=== PATIENT | male | born 1960 | race Caucasian/White ===

== ENCOUNTER 2016-10-28 14:30 | Emergency (ER) | payer BC ==
[2016-10-28] MEDS ORDERED: KETOROLAC TROMETHAMINE 60 MG/2 ML SDV IM ONE (15:19)
--- NOTE | 2016-10-28 15:20 | ER Document Report ---
ED Medical Screen (RME) - General Chief Complaint: Flank Pain Stated Complaint: SIDE PAIN Time Seen by Provider: 10/28/16 15:18 Notes: Patient states he has right flank pain. He states this feels like previous kidney stones. He states he has had 14 kidney stones and has had to have operations previously for the kidney stones. He also states he has chronic back pain. He states he often gets Dilaudid for the pain. He also states that the last time he had a stone his urologist gave him liquid narcotics. Patient states he currently does not have any pain medication because he is here visiting. TRAVEL OUTSIDE OF THE [place] IN LAST 30 DAYS: No - Related Data Allergies/Adverse Reactions: No Known Allergies Allergy (Unverified 10/28/16 14:42) Past Medical History Renal/ Medical History: Denies: Hx Peritoneal Dialysis Physical Exam - Vital signs Vitals: Temp Pulse Resp BP Pulse Ox 97.8 F 76 18 188/103 H 98 10/28/16 14:41 10/28/16 14:41 10/28/16 14:41 10/28/16 14:41 10/28/16 14:41 Course - Vital Signs Vital signs: Temp Pulse Resp BP Pulse Ox 97.8 F 76 18 188/103 H 98 10/28/16 14:41 10/28/16 14:41 10/28/16 14:41 10/28/16 14:41 10/28/16 14:41
[2016-10-28 16:10] LABS: ABSOLUTE EOSINOPHILS # (AUTO) 0.6 10^3/uL (0.0-0.6); ABSOLUTE LYMPHOCYTES (AUTO) 1.7 10^3/uL (0.5-4.7); ABSOLUTE MONOCYTES (AUTO) 0.7 10^3/uL (0.1-1.4); ABSOLUTE NEUT (AUTO) 5.1 10^3/uL (1.7-8.2); BASOPHILS % (AUTO) 0.5 % (0-2); EOSINOPHILS % (AUTO) 7.2 % (0-6); HEMATOCRIT 46.8 % (37.9-51.0); HEMOGLOBIN 15.8 g/dL (13.5-17.0); HGB HCT DIFFERENCE 0.6; MEAN CORPUSCULAR HEMOGLOBIN 31.2 pg (27.0-33.4); MEAN CORPUSCULAR HGB CONC 33.7 g/dL (32.0-36.0); MEAN CORPUSCULAR VOLUME 93 fl (80-97); MONOCYTES % (AUTO) 8.7 % (3-13); RED BLOOD COUNT 5.05 10^6/uL (4.35-5.55); RED CELL DISTRIBUTION WIDTH 13.4 % (11.5-14.0); SEGMENTED NEUTROPHILS % (AUTO) 62.6 % (42-78); WHITE BLOOD COUNT 8.2 10^3/uL (4.0-10.5)
[2016-10-28 16:30] LABS: ALANINE AMINOTRANSFERASE 35 U/L (21-72); ALBUMIN 4.7 g/dL (3.5-5.0); ALKALINE PHOSPHATASE 115 U/L (38-126); ANION GAP 12 (5-19); ASPARTATE AMINO TRANSFERASE 28 U/L (17-59); BILIRUBIN,DIRECT 0.4 mg/dL (0.0-0.4); BILIRUBIN,TOTAL 0.4 mg/dL (0.2-1.3); BLOOD UREA NITROGEN 19 mg/dL (7-20); CARBON DIOXIDE 30 mmol/L (22-30); CHLORIDE 100 mmol/L (98-107); CREATININE RESULT 1.08 mg/dL (0.52-1.25); GLUCOSE 99 mg/dL (75-110); POTASSIUM 4.3 mmol/L (3.6-5.0); TOTAL PROTEIN 7.7 g/dL (6.3-8.2)
--- NOTE | 2016-10-28 16:53 | ER Document Report ---
ED GI/ - General Chief Complaint: Flank Pain Stated Complaint: SIDE PAIN Time Seen by Provider: 10/28/16 15:18 Notes: Patient says he is experiencing right flank pain from his 14th kidney stone. It started about 3 or 4 hours ago. It is located in the right flank. He has had previous stones, almost all of which passed on their own, although he has had one (#12) that had to be broken up by laser and removed by cystoscopy. He is nauseated but has not been vomiting. Has not had any fever. Has not noted any blood in his urine. PMH: Gastric sling. GERD. TRAVEL OUTSIDE OF THE [place] IN LAST 30 DAYS: No - Related Data Allergies/Adverse Reactions: No Known Allergies Allergy (Unverified 10/28/16 14:42) Past Medical History - Social History Smoking Status: Never Smoker Frequency of alcohol use: None Drug Abuse: None Family History: Reviewed & Not Pertinent Patient has suicidal ideation: No Patient has homicidal ideation: No Renal/ Medical History: Reports: Hx Kidney Stones - Patient says that he has had 14 kidney stones in his lifetime. GI Medical History: Reports: Hx Gastroesophageal Reflux Disease, Other - Gastric sling? Procedure Past Surgical History: Reports: Other - Gastric sling? Surgery Review of Systems - Review of Systems Notes: REVIEW OF SYSTEMS: CONSTITUTIONAL : Denies fever. EENT: Denies eye, ear, nose or mouth or throat pain or other symptoms. CARDIOVASCULAR: Denies chest pain. RESPIRATORY: Denies cough, chest congestion, or shortness of breath. GASTROINTESTINAL: Nausea, but denies abdominal pain or vomiting, or diarrhea. Has pain in the right flank and back region. GENITOURINARY: Denies difficulty or painful urinating, urinary frequency, blood in urine. MUSCULOSKELETAL: Denies back or neck pain. Denies joint pain or swelling. SKIN: Denies rash or skin lesions. NEUROLOGICAL: Denies LOC or altered mental status. Denies headache. Denies sensory loss or motor deficits. ALL OTHER SYSTEMS REVIEWED AND NEGATIVE. Physical Exam - Vital signs Vitals: Temp Pulse Resp BP Pulse Ox 97.8 F 76 18 188/103 H 98 10/28/16 14:41 10/28/16 14:41 10/28/16 14:41 10/28/16 14:41 10/28/16 14:41 Interpretation: Hypertensive - Notes Notes: PHYSICAL EXAMINATION: GENERAL: Well-appearing, in no acute distress. Appears uncomfortable, but feels better now that he had an injection of Toradol IM in triage. EYES: Pupils equal round and reactive to light, extraocular movements intact. ENT: oropharynx clear without exudates. Moist mucous membranes. NECK: Normal range of motion, supple. LUNGS: Breath sounds clear and equal bilaterally. HEART: Regular rate and rhythm without murmurs. ABDOMEN: Soft, nontender. No guarding or rebound. No bruits heard. BACK: No tenderness throughout entire back. Indicates painful area in the right flank. EXTREMITIES: Normal range of motion without pain. NEUROLOGICAL: Normal speech, normal gait. Normal sensory, motor, and reflex exams. Awake, alert, and oriented x3. Cranial nerves normal. PSYCH: Normal mood, normal affect. SKIN: Warm, dry, no rashes. Course - Re-evaluation Re-evalutation: 10/28/16 20:06 Patient is comfortable at the time of my examination. Patient is very well informed about kidney stones. He realizes that his current stone of 8 mm is an unlikely one to pass, however we will try the usual treatments with Flomax, etc. Patient has a urology group that follows him for his stones. They are located in [facility]. He has had them take care of many stones, including a laser lithotripsy. He assures me he can get into see them on a short notice such as tomorrow. Patient does not have any indications of infection. There are just a few white cells in his urine which is probably not significant. I have ordered a culture of his urine. Patient has been giving him prescriptions for Dilaudid, Zofran, Flomax, and Cipro 10/28/16 20:08 - Vital Signs Vital signs: Temp Pulse Resp BP Pulse Ox 97.8 F 76 20 135/89 H 98 10/28/16 14:41 10/28/16 14:41 10/28/16 18:31 10/28/16 18:31 10/28/16 18:31 - Laboratory Result Diagrams: 10/28/16 15:40 10/28/16 15:40 Laboratory results interpreted by me: 10/28/16 10/28/16 15:40 18:16 Eosinophils % 7.2 H Ur Leukocyte Esterase TRACE H Urine Ascorbic Acid 20 H - Diagnostic Test Radiology reviewed: Image reviewed, Reports reviewed - Patient CT scan shows an 8 mm stone at the proximal right ureter, UPJ. Moderate hydronephrosis. Discharge - Discharge Clinical Impression: Obstruction of right ureteropelvic junction (UPJ) due to stone Condition: Stable Disposition: HOME, SELF-CARE Additional Instructions: KIDNEY STONE: You are passing or have passed a kidney stone. These stones are usually due to increased calcium or uric acid concentrations in your urine. Stones within the kidney itself are not painful. The pain occurs as the stone leaves the kidney to pass down the long tube, called the ureter, leading to the bladder. If the stone is small, it will usually pass by itself. Most patients can pass the stone at home. You will usually receive medications for pain, nausea or vomiting, and sometimes a medication to assist in passing the kidney stone. However, if the pain is very severe or if vomiting prevents you from taking oral pain medications, you may need to return for further treatment. Drink three or four quarts of fluids per day. You will be given pain medication (if needed) and urine strainers. Strain all your urine to see if the stone passes. If your doctor has asked you to bring the stone in for analysis, return with the stone once it has passed. Return if pain or vomiting become severe, if you develop a high fever, if you are unable to pass your urine, or if other unusual symptoms occur. TORADOL INJECTION: You have been given an injection of ketorolac tromethamine (Toradol). This is an excellent, safe drug for pain control. It also has potent antiinflammatory action. You should have significant pain relief within about one hour. Toradol is not addicting and is non-sedating. It does not interfere with driving or work. Call or return if you develop itching, hives, shortness of breath, or rash. ANTINAUSEA MEDICATION: You have been given a medication to suppress nausea and vomiting. This type of medication can be given as a shot, pill, or suppository. It will usually last for many hours. Pills and shots usually last six to eight hours, suppositories last about 12 hours. For the typical illness, only one or two doses of the medication may be necessary. Mild lightheadedness may occur. This type of medicine can cause drowsiness. Do not drive or operate dangerous machinery while under its influence. Do not mix with alcohol. See your doctor at once if you have muscle spasms or tightness, or uncontrollable motions (particularly of the neck, mouth, or jaw). Persistent vomiting or severe lightheadedness should also be evaluated by the physician. ORAL NARCOTIC MEDICATION: You have been given a prescription for pain control. This medication is a narcotic. It's best taken with food, as nausea can result if taken on an empty stomach. Don't operate machinery or drive within six hours of taking this medication. Do not combine this medicine with alcohol, or with any medication which can cause sedation (such as cold tablets or sleeping pills) unless you get permission from the physician. Narcotics tend to cause constipation. If possible, drink plenty of fluids and eat a diet high in fiber and fruits. FLOMAX (tamsulosin): Flomax is a medicine that shrinks the prostate gland. It helps relieve symptoms of benign prostatic hypertrophy, such as frequent urination, weak stream, and inadequate emptying. It has been shown to dilate the ureter (tube leading from the kidney to the bladder) and help in passing kidney stones Flomax usually causes no side effects. You may notice slight tiredness and dizziness for a few days. Some patients develop nasal congestion. Rarely, impotence can occur. If the symptoms are bothersome and don't improve with continued use, call your doctor. Contact your doctor or return if you have fainting spells, severe weakness or dizziness, shortness of breath, or rash. Ciprofloxacin You have been given an antibacterial agent, ciprofloxacin (Cipro). This medicine is not related to the penicillins, sulfas, cephalosporins, or tetracyclines. It is often given to patients who are allergic to these drugs. It has been chosen for you either because other drugs are not appropriate, or because of the nature of your problem. Cipro should not be taken with antacids, as these can decrease its effectiveness. It can be taken without regard to meals. CIPRO SHOULD NOT BE TAKEN BY CHILDREN, NURSING WOMEN, OR WOMEN. Although Cipro is usually well-tolerated, common side effects can include nausea and diarrhea. Contact your doctor if you experience any unusual symptoms while on this medication, such as joint pain or swelling, shortness of breath, wheezing, faintness, or hives. FOLLOW-UP CARE: If you have been referred to a physician for follow-up care, call the physician s office for an appointment as you were instructed or within the next two days. If you experience worsening or a significant change in your symptoms, notify the physician immediately or return to the Emergency Department at any time for re-evaluation. Call your urology office tomorrow morning to inform them of and need to be seen promptly. The stone that you have might pass, but it is very unlikely because of its size. Prescriptions: Hydromorphone HCl [Dilaudid 2 mg Tablet] 2 mg PO Q4HP PRN #30 tablet PRN Reason: Ciprofloxacin HCl [Cipro 500 mg Tablet] 500 mg PO BID #10 tablet Ondansetron [Zofran Odt 4 mg Tablet] 1 - 2 tab PO Q4H PRN #15 tab.rapdis PRN Reason: For Nausea/Vomiting Tamsulosin HCl [Flomax] 0.4 mg PO DAILY #7 cap.er.24h
--- NOTE | 2016-10-28 17:27 | RADIOLOGY REPORT (SQ) ---
EXAM DESCRIPTION: CT LTD RENAL STONE PROTOCOL ON COMPLETED DATE/TIME: 10/28/2016 5:11 pm REASON FOR STUDY: Right flank pain, Hx stones COMPARISON: None. TECHNIQUE: CT scan of the abdomen and pelvis performed without intravenous or oral contrast. Images reviewed with lung, soft tissue, and bone windows. Reconstructed coronal and sagittal MPR images revi ewed. All images stored on PACS. All CT scanners at this facility use dose modulation, iterative reconstruction, and/or weight based d osing when appropriate to reduce radiation dose to as low as reasonably achievable (ALARA). [facility]: Dose Right [facility]: CareDose [facility]: Dose Right [facility]: Teradose 4D [facility]: Smart [employer] RADIATION DOSE: mGy. LIMITATIONS: None. FINDINGS: LOWER CHEST: No significant findings. No nodules or infiltrates. NON-CONTRASTED LIVER, SPLEEN, ADRENALS: Evaluation limited by lack of IV contrast. No identified sign ificant masses. PANCREAS: No masses. No peripancreatic inflammatory changes. GALLBLADDER: No identified stones by CT criteria. No inflammatory changes to suggest cholecystitis. RIGHT KIDNEY AND URETER: No suspicious masses. Assessment limited by lack of IV contrast. 8 mm calc ified stone in the proximal right ureter below the UPJ with mild-moderate hydronephrosis . Additiona l parenchymal calcified stones are present, largest measuring 10 mm. LEFT KIDNEY AND URETER: No suspicious masses. Assessment limited by lack of IV contrast. No signifi cant calcifications. No hydronephrosis or hydroureter. AORTA AND RETROPERITONEUM: No aneurysm. No retroperitoneal masses or adenopathy. BOWEL AND PERITONEAL CAVITY: No obvious masses or inflammatory changes. No free fluid. APPENDIX: Normal. PELVIS, BLADDER, AND ABDOMINAL WALL:No abnormal masses. No free fluid. Bladder normal. BONES: No acute findings. OTHER: No other significant finding. IMPRESSION: 8 mm calcified stone in the proximal right ureter below the UPJ with mild-moderate hydro nephrosis . Additional parenchymal calcified stones are present, largest measuring 10 mm. COMMENT: Quality ID # [id number]: Final reports with documentation of one or more dose reduction techniques (e.g., Automated exposure control, adjustment of the mA and/or kV according to patient size, use of iterative reconstruction technique) TECHNICAL DOCUMENTATION: JOB ID: [id number] [employer] ([employer])- All Rights Reserved
[2016-10-28] MEDS ORDERED: PROMETHAZINE HCL 25 MG TABLET PO ONE (18:08)
[2016-10-28] MEDS ORDERED: HYDROMORPHONE HCL 2 MG TABLET PO ONE (18:08)
[2016-10-28 18:36] VITALS: BP 135/89
[2016-10-28 19:08] LABS: APPEARANCE,URINE CLEAR; BILIRUBIN,URINE NEGATIVE (NEGATIVE); GLUCOSE, URINE NEGATIVE (NEGATIVE); KETONES,URINE NEGATIVE (NEGATIVE); LEUKOCYTE ESTERASE,URINE TRACE (NEGATIVE); NITRITE,URINE NEGATIVE (NEGATIVE); PROTEIN,URINE NEGATIVE (NEGATIVE); URINE SPECIFIC GRAVITY 1.012; UROBILINOGEN,URINE NEGATIVE mg/dL (<2.0)
== END 2016-10-28 18:37 | disposition home or self-care (01) ==
LOC: ER 14:30
DX: N20.1 Calculus of ureter (principal); R10.9 Unspecified abdominal pain; R11.0 Nausea; K21.9 Gastro-esophageal reflux disease without esophagitis; Z87.442 Personal history of urinary calculi
CPT/HCPCS: 99284; 96372; 36415; 87086; 85025; 87088; 80053; 81001; 76380; J1885

== ENCOUNTER 2016-10-30 12:36 | Inpatient (IN) | payer BC ==
[2016-10-30] MEDS ORDERED: CIPROFLOXACIN 400 MG/D5W RTU 400 MG/200 ML RTUPB IV ONE (12:55)
--- NOTE | 2016-10-30 12:57 | ER Document Report ---
ED Medical Screen (RME) - General Chief Complaint: Fever Stated Complaint: FEVER Time Seen by Provider: 10/30/16 12:51 TRAVEL OUTSIDE OF THE [place] IN LAST 30 DAYS: No - HPI Notes: 10/30/16 12:57 Patient seen 48 hours ago with diagnosis of a 8 mm kidney stone at [facility] concerning for infection started on ciprofloxacin patient is having fevers chills Anh's at home now urologist is at [facility] in [place] - Related Data Allergies/Adverse Reactions: No Known Allergies Allergy (Unverified 10/28/16 14:42) Past Medical History - Social History Chew tobacco use (# tins/day): No Frequency of alcohol use: None Drug Abuse: None Renal/ Medical History: Reports: Hx Kidney Stones - Patient says that he has had 14 kidney stones in his lifetime.. Denies: Hx Peritoneal Dialysis GI Medical History: Reports: Hx Gastroesophageal Reflux Disease Surgical Hx: Negative Past Surgical History: Reports: Other - Gastric sling? Surgery Review of Systems - Review of Systems Constitutional: Fever Physical Exam - Vital signs Vitals: Temp Pulse Resp BP Pulse Ox 99.5 F 102 H 20 138/81 H 99 10/30/16 12:46 10/30/16 12:46 10/30/16 12:46 10/30/16 12:46 10/30/16 12:46 - Extremities General upper extremity: Normal inspection General lower extremity: Normal inspection Course - Vital Signs Vital signs: Temp Pulse Resp BP Pulse Ox 99.5 F 102 H 20 138/81 H 99 10/30/16 12:46 10/30/16 12:46 10/30/16 12:46 10/30/16 12:46 10/30/16 12:46
[2016-10-30] MEDS: NORMAL SALINE 1000 ML 1,000 ML IV PRN ×2 (13:12→14:20)
[2016-10-30] MEDS ORDERED: ACETAMINOPHEN 650 MG SUPP.RECT PR ONE (13:13)
--- NOTE | 2016-10-30 13:14 | ER Document Report ---
ED Fever - General Chief Complaint: Fever Stated Complaint: FEVER Time Seen by Provider: 10/30/16 12:51 Notes: Patient is a 56-year-old male who presents emergency department complaining of fever. Patient states that he was seen here on October 28 and told he had an 8 mm stone in his right ureter. He was discharged home on Cipro, Flomax and pain medication and told to follow-up with his urologist. Patient states that as soon as he got home he started developing low-grade fevers. Patient states that the highest they have been was 103.3 which was this morning and he decided to come to the emergency department. Patient admits to fever, chills, rigor, nausea, flank pain. States he has been able to urinate. Past medical history significant for history of kidney stones prior to this occurrence back in May requiring cystoscopy and stent placement. Past surgical history significant for gastric bypass in April 2016. Social history denies any tobacco, alcohol or drug use. Patient is here visiting his girlfriend. Patient states that his primary care facility is [facility] in [facility] about [address] Abraham, follows with Dr. Carvajal out of [facility]. TRAVEL OUTSIDE OF THE [place] IN LAST 30 DAYS: No - Related Data Allergies/Adverse Reactions: No Known Allergies Allergy (Unverified 10/28/16 14:42) Past Medical History - Social History Smoking Status: Never Smoker Chew tobacco use (# tins/day): No Frequency of alcohol use: None Drug Abuse: None Family History: Reviewed & Not Pertinent Patient has suicidal ideation: No Patient has homicidal ideation: No Renal/ Medical History: Reports: Hx Kidney Stones - Patient says that he has had 14 kidney stones in his lifetime.. Denies: Hx Peritoneal Dialysis GI Medical History: Reports: Hx Gastroesophageal Reflux Disease Surgical Hx: Negative Past Surgical History: Reports: Other - Gastric sling? Surgery Review of Systems - Review of Systems Constitutional: See HPI Gastrointestinal: See HPI Genitourinary: See HPI -: Yes All other systems reviewed and negative Physical Exam - Vital signs Vitals: Temp Pulse Resp BP Pulse Ox 99.5 F 102 H 20 138/81 H 99 10/30/16 12:46 10/30/16 12:46 10/30/16 12:46 10/30/16 12:46 10/30/16 12:46 - Notes Notes: PHYSICAL EXAM GENERAL: Alert, interacts well. HEAD: Normocephalic, atraumatic. EYES: Pupils equal, round, and reactive to light. Extraocular movements intact. ENT: Oral mucosa moist, tongue midline. NECK: Full range of motion. Supple. Trachea midline. LUNGS: Clear to auscultation bilaterally, no wheezes, rales, or rhonchi. No respiratory distress. HEART: Regular rate and rhythm. No murmurs, gallops, or rubs. ABDOMEN: Soft, nondistended, nontender. No guarding, rebound, or rigidity.. Bowel sounds present in all 4 quadrants. EXTREMITIES: Moves all 4 extremities spontaneously. No edema, radial and dorsalis pedis pulses 2/4 bilaterally. No cyanosis. BACK: positive CVA tenderness on the right, negative on the left. NO paraspinous tenderness, spinous process tenderness, deformities or step offs NEUROLOGICAL: Alert and oriented x4. Normal speech. PSYCH: Normal affect, normal mood. SKIN: Warm, dry, normal turgor. No rashes or lesions noted. Course - Re-evaluation Re-evalutation: 10/30/16 14:40 Patient is a 56-year-old male who is hemodynamically stable, no acute distress. Repeat temp at the bedside was 100.5. CBC shows a white count of 23.3 with left shift. Renal function is elevated from initial testing done on the . Trace leukoesterase noted on urinalysis. Presentation is concerning for complicated pyelonephritis secondary to stone noted on KUB and imaging done on the . Patient has been accepted by Dr. Delvalle for inpatient care with covering neurologist Dr. Woodruff of this patient. Patient to be kept n.p.o. for over this afternoon/evening for a cystoscopy placement of the right ureter stent patient agrees with plan.. - Vital Signs Vital signs: Temp Pulse Resp BP Pulse Ox 100.5 F H 102 H 16 138/81 H 99 10/30/16 13:17 10/30/16 12:46 10/30/16 13:29 10/30/16 12:46 10/30/16 12:46 - Laboratory Result Diagrams: 10/30/16 13:10 10/30/16 13:10 Laboratory results interpreted by me: 0910/30/16 10/30/16 13:10 13:10 13:10 WBC 23.3 H D Seg Neuts % (Manual) 86 H Lymphocytes % (Manual) 5 L Abs Neuts (Manual) 21.2 H PT 15.5 H BUN 34 H Creatinine 2.35 H Est GFR ( Amer) 35 L Est GFR (Non-Af Amer) 29 L Glucose 113 H Direct Bilirubin 0.5 H - Diagnostic Test Radiology reviewed: Image reviewed, Reports reviewed Discharge - Discharge Clinical Impression: Pyelonephritis, acute, Obstruction of right ureteropelvic junction (UPJ) due to stone Condition: Stable Disposition: ADMITTED INPATIENT Admitting Provider: Hospitalist - [facility] Admitted: [facility]
[2016-10-30 13:35] LABS: HEMATOCRIT 46.4 % (37.9-51.0); HEMOGLOBIN 15.3 g/dL (13.5-17.0); HGB HCT DIFFERENCE -0.5; MEAN CORPUSCULAR HEMOGLOBIN 30.8 pg (27.0-33.4); MEAN CORPUSCULAR VOLUME 94 fl (80-97); RED BLOOD COUNT 4.96 10^6/uL (4.35-5.55); RED CELL DISTRIBUTION WIDTH 13.6 % (11.5-14.0)
[2016-10-30 13:36] LABS: VENOUS BLOOD BASE EXCESS 0.2 mmol/L; VENOUS BLOOD HCO3 26.2 mmol/L (20-32); VENOUS BLOOD PH 7.36 (7.30-7.42)
[2016-10-30 13:39] LABS: PROTHROMBIN TIME 15.5 SEC (11.4-15.4)
[2016-10-30 13:50] LABS: ALANINE AMINOTRANSFERASE 33 U/L (21-72); ALBUMIN 4.1 g/dL (3.5-5.0); ALKALINE PHOSPHATASE 99 U/L (38-126); ANION GAP 12 (5-19); ASPARTATE AMINO TRANSFERASE 26 U/L (17-59); BILIRUBIN,DIRECT 0.5 mg/dL (0.0-0.4); BILIRUBIN,TOTAL 0.7 mg/dL (0.2-1.3); BLOOD UREA NITROGEN 34 mg/dL (7-20); CALCIUM 9.4 mg/dL (8.4-10.2); CARBON DIOXIDE 27 mmol/L (22-30); CHLORIDE 99 mmol/L (98-107); CREATININE RESULT 2.35 mg/dL (0.52-1.25); GLUCOSE 113 mg/dL (75-110); POTASSIUM 4.3 mmol/L (3.6-5.0); SODIUM 138.2 mmol/L (137-145); TOTAL PROTEIN 7.1 g/dL (6.3-8.2)
[2016-10-30] MEDS ORDERED: NORMAL SALINE 1000 ML 1,000 ML IV ONE (13:59)
[2016-10-30 14:01] LABS: WHITE BLOOD COUNT 23.3 10^3/uL (4.0-10.5)
[2016-10-30 14:03] LABS: BAND NEUTROPHILS % (MANUAL) 5 % (3-5); BASOPHILS % (MANUAL) 0 % (0-2); EOSINOPHILS % (MANUAL) 0 % (0-6); LYMPHOCYTES % (MANUAL) 5 % (13-45); TOTAL CELLS COUNTED 100
[2016-10-30 14:05] LABS: TOXIC GRANULATION SLIGHT; TOXIC VACUOLATION PRESENT
[2016-10-30 14:06] LABS: RBC MORPHOLOGY COMMENT NORMO-CYTIC/CHROMIC
--- NOTE | 2016-10-30 14:14 | RADIOLOGY REPORT (SQ) ---
EXAM DESCRIPTION: KUB/ABDOMEN (SINGLE VIEW) COMPLETED DATE/TIME: 10/30/2016 1:46 pm REASON FOR STUDY: eval 8mm stone seen on ct COMPARISON: CT dated 10/28/2016. NUMBER OF VIEWS: One view. TECHNIQUE: AP supine digital radiograph of the abdomen. LIMITATIONS: Limited study due to overlying bowel contents. FINDINGS: CALCIFICATIONS: RIGHT KIDNEY: Probable small calculus in the right kidney, obscured by stool in the overlying colon. RIGHT URETER: No calcifications in the expected location of the ureter. LEFT KIDNEY: None. LEFT URETER: No calcifications in the expected location of the ureter. BLADDER: No suspicious calcifications in the pelvis. BOWEL GAS PATTERN AND SOFT TISSUES: Normal bowel gas pattern. No masses or organomegaly. BONES: No acute fracture. No worrisome bone lesions. OTHER: None. IMPRESSION: PROBABLE CALCULUS IN THE RIGHT KIDNEY, OBSCURED BY STOOL IN THE OVERLYING COLON. TECHNICAL DOCUMENTATION: JOB ID: [id number] [employer]- All Rights Reserved
[2016-10-30] MEDS ORDERED: VANCOMYCIN HCL INJ 1000 MG VIAL IV ONE (14:25)
[2016-10-30] MEDS ORDERED: PIPERACILLIN/TAZOBACTAM 3.375 GM VIAL IV ONE (14:25)
[2016-10-30 14:38] LABS: APPEARANCE,URINE CLEAR; BILIRUBIN,URINE NEGATIVE (NEGATIVE); GLUCOSE, URINE NEGATIVE (NEGATIVE); KETONES,URINE NEGATIVE (NEGATIVE); LEUKOCYTE ESTERASE,URINE TRACE (NEGATIVE); NITRITE,URINE NEGATIVE (NEGATIVE); PROTEIN,URINE 100 mg/dL (NEGATIVE); UROBILINOGEN,URINE NEGATIVE mg/dL (<2.0)
[2016-10-30] MEDS ORDERED: ONDANSETRON HCL INJ/PF 4 MG/2 ML SDV IV ONE (14:45)
[2016-10-30] MEDS ORDERED: LIDOCAINE 2% URO-JET 5 ML KIT ONE (15:05)
[2016-10-30] MEDS ORDERED: ALBUTEROL SULFATE 0.083% NEB 2.5 MG/3 ML AMPUL NEB PRN (15:11)
[2016-10-30] MEDS ORDERED: NORMAL SALINE 1000 ML 1,000 ML IV PRN (15:11)
[2016-10-30] MEDS ORDERED: ACETAMINOPHEN 325 MG TABLET PO PRN (15:11)
[2016-10-30] MEDS ORDERED: ONDANSETRON 4 MG TAB.RAPDIS PO PRN (15:11)
[2016-10-30] MEDS ORDERED: ONDANSETRON HCL INJ/PF 4 MG/2 ML SDV IV PRN (15:11)
[2016-10-30] MEDS ORDERED: HYDROMORPHONE HCL INJ/PF 2 MG/ML AMPULE IV PRN (15:16)
[2016-10-30] MEDS ORDERED: ACETAMINOPHEN 100 ML IV ONE (15:17)
[2016-10-30] MEDS ORDERED: HYDROMORPHONE HCL INJ/PF 2 MG/ML AMPULE ONE (15:17)
[2016-10-30] MEDS ORDERED: MIDAZOLAM 2 MG/2 ML INJ ONE (15:17)
[2016-10-30] MEDS ORDERED: PROPOFOL INJ 200 MG/20 ML VIAL IV ONE (15:17)
[2016-10-30] MEDS ORDERED: VANCOMYCIN HCL 0 MG in DEXTROSE 5%-WATER 250 ML IV NR (15:30)
--- NOTE | 2016-10-30 15:30 | PDOC H&P ---
History of Present Illness Admission Date/PCP: 10/30/16 14:43 Patient complains of: Fevers and chills History of Present Illness: MYAH LOPEZ is a 56 year old male who has a previous history of kidney stones who presents with nausea, vomiting, fevers and chills and rigors. The patient was seen in the emergency room here at [facility] on October 28. He was diagnosed with a kidney stone and was given Dilaudid and Cipro. Patient went home and reports that later that evening he began to have fevers and chills up to as high as 103. Patient presents today with continued symptoms along with worsening pain. The patient is found to have a 14 mm stone is admitted for IV antibiotics and urological intervention. The patient also was noted to have acute renal failure. His creatinine 2 days ago was normal but is is up today. Patient has had decreased p.o. intake. He has had some hematuria. He complains of bilateral flank pain. It has been intermittent in nature. He also does complain of some right lower quadrant abdominal pain. Past Medical History Cardiac Medical History: Reports: None Pulmonary Medical History: Reports: None EENT Medical History: Reports: None Neurological Medical History: Reports: None Endocrine Medical History: Reports: None Renal/ Medical History: Reports: Nephrolithiasis Malignancy Medical History: Reports: None GI Medical History: Reports: Gastroesophageal Reflux Disease Musculoskeltal Medical History: Reports: None Psychiatric Medical History: Reports: None Traumatic Medical History: Reports: None Hematology: Reports: None Infectious Medical History: Reports: None Past Surgical History Past Surgical History: Reports: Other - Gastric sleeve surgery Social History Information Source: Patient Lives with: Spouse/Significant other Smoking Status: Never Smoker Frequency of Alcohol Use: Rare Hx Recreational Drug Use: No Drugs: None - Advance Directive Resuscitation Status: Full Code Family History Family History: Both of his parents lived to their 80s. He reports that he had weight related illnesses. Parental Family History Reviewed: Yes Children Family History Reviewed: No Sibling(s) Family History Reviewed.: No Medication/Allergy Home Medications: Esomeprazole Magnesium [Nexium] 40 mg PO DAILY 10/30/16 Gabapentin [Neurontin 300 mg Capsule] 300 mg PO Q8 10/30/16 Glipizide [Glucotrol 5 mg Tablet] 5 mg PO BID 10/30/16 Lisinopril [Zestril] 20 mg PO DAILY 10/30/16 Pregabalin [Lyrica 100 mg Capsule] 100 mg PO DAILY 10/30/16 Tadalafil [Cialis] 5 mg PO ASDIR PRN 10/30/16 Allergies/Adverse Reactions: No Known Allergies Allergy (Unverified 10/28/16 14:42) Review of Systems Constitutional: PRESENT: chills, fever(s) Eyes: ABSENT: visual disturbances Ears: ABSENT: hearing changes Cardiovascular: ABSENT: chest pain, dyspnea on exertion, edema, orthropnea, palpitations Respiratory: ABSENT: cough, hemoptysis Gastrointestinal: PRESENT: nausea, vomiting Genitourinary: PRESENT: as per HPI, dysuria Musculoskeletal: ABSENT: joint swelling Integumentary: ABSENT: rash, wounds Neurological: ABSENT: abnormal gait, abnormal speech, confusion, dizziness, focal weakness, syncope Psychiatric: ABSENT: anxiety, depression Hematologic/Lymphatic: ABSENT: easy bleeding, easy bruising Physical Exam Vital Signs: Temp Pulse Resp BP Pulse Ox 100.5 F H 102 H 23 H 122/72 94 10/30/16 13:17 10/30/16 12:46 10/30/16 14:24 10/30/16 14:24 10/30/16 14:24 General appearance: PRESENT: no acute distress, well-developed, well-nourished Head exam: PRESENT: atraumatic, normocephalic Eye exam: PRESENT: conjunctiva pink, EOMI, PERRLA. ABSENT: scleral icterus Ear exam: PRESENT: normal external ear exam Mouth exam: PRESENT: moist, tongue midline Neck exam: ABSENT: JVD Respiratory exam: PRESENT: clear to auscultation flynn. ABSENT: rales, rhonchi, wheezes Cardiovascular exam: PRESENT: RRR. ABSENT: diastolic murmur, rubs, systolic murmur Pulses: PRESENT: normal dorsalis pedis pul Vascular exam: PRESENT: normal capillary refill GI/Abdominal exam: PRESENT: normal bowel sounds, soft. ABSENT: distended, guarding, mass, organolmegaly, rebound, tenderness Rectal exam: PRESENT: deferred Extremities exam: ABSENT: calf tenderness, clubbing, pedal edema Neurological exam: PRESENT: alert, awake, oriented to person, oriented to place , oriented to time, oriented to situation, CN II-XII grossly intact. ABSENT: motor sensory deficit Psychiatric exam: PRESENT: appropriate affect Skin exam: PRESENT: dry, intact, warm. ABSENT: cyanosis, rash Results Impressions: KUB X-Ray 10/30/16 12:55 IMPRESSION: PROBABLE CALCULUS IN THE RIGHT KIDNEY, OBSCURED BY STOOL IN THE OVERLYING COLON. Assessment & Plan - Diagnosis (1) Acute renal failure Is this a current diagnosis for this admission?: Yes Plan: Patient has acute renal failure most likely secondary to dehydration. The patient does have a kidney stone however it is unilateral. Patient will get IV fluids and will have stone removal today by urology. (2) Obstruction of right ureteropelvic junction (UPJ) due to stone Is this a current diagnosis for this admission?: Yes Plan: Patient is to be evaluated by urology. Will give Dilaudid as needed along with IV fluids. (3) Pyelonephritis, acute Is this a current diagnosis for this admission?: Yes Plan: Patient has had fever along with the kidney stone. Given his history of having had previous stents we will cover with vancomycin and Zosyn as he has gram positives growing from his urine culture. - Time Time Spent: 50 to 70 Minutes - Inpatient Certification Medical Necessity: Need For IV Fluids, Need for IV Antibiotics
[2016-10-30] MEDS ORDERED: MORPHINE SULFATE 10 MG/ML INJ IV PRN (16:32)
[2016-10-30] MEDS ORDERED: PROMETHAZINE HCL INJ 25 MG/1 ML VIAL IV PRN ×2 (16:32)
[2016-10-30] MEDS ORDERED: FENTANYL CITRATE INJ/PF 100 MCG/2 ML AMPUL IV PRN ×3 (16:32)
[2016-10-30] MEDS ORDERED: DIPHENHYDRAMINE HCL 50 MG/ML VIAL IV PRN (16:32)
[2016-10-30] MEDS ORDERED: OXYCODONE-ACETAMINOPHEN 5-325 MG TABLET PO PRN ×2 (16:32)
[2016-10-30] MEDS ORDERED: MEPERIDINE HCL/PF INJ 25 MG/1 ML DISP.SYRIN IV PRN (16:32)
--- NOTE | 2016-10-30 16:48 | Operative Report ---
Operative Report DATE OF SURGERY: 10/30/16 PREOPERATIVE DIAGNOSIS: Ureteral obstruction, UPJ stone, pyelonephritis POSTOPERATIVE DIAGNOSIS: same OPERATION: 1. Cystoscopy. 2. Placement of right ureteral stent. 3. Culture of urine from right renal pelvis SURGEON: MITCH BOX II ANESTHESIA: GA INTRAOPERATIVE FINDINGS: right ureteral obstruction
[2016-10-30] MEDS ORDERED: PHENYLEPHRINE HCL INJ/PF 10 MG/1 ML SDV ONE (16:53)
[2016-10-30] MEDS ORDERED: ONDANSETRON HCL INJ/PF 4 MG/2 ML SDV ONE (16:53)
[2016-10-30] MEDS ORDERED: DEXAMETHASONE SOD PHOSPHATE INJ 4 MG/1 ML VIAL ONE (16:53)
[2016-10-30] MEDS ORDERED: SUCCINYLCHOLINE CHLORIDE INJ 200 MG/10 ML VIAL ONE (16:53)
--- NOTE | 2016-10-30 17:11 | RADIOLOGY REPORT (SQ) ---
EXAM DESCRIPTION: PYELOGRAM RETROGRADE COMPLETED DATE/TIME: 10/30/2016 4:44 pm REASON FOR STUDY: STENT PLACEMENT COMPARISON: None. FLUOROSCOPY TIME: 0.54 minutes. TECHNIQUE: Intra-operative images acquired during surgical procedure to evaluate progress. NUMBER OF IMAGES: 1 image. LIMITATIONS: None. FINDINGS: Single fluoroscopic image demonstrates partial visualization of the right side of the abdo men with re- demonstration of right renal calculus. No additional acute or significant findings. IMPRESSION: IMAGE(S) OBTAINED DURING PROCEDURE. COMMENT: Quality ID [id number]: Final reports for procedures using fluoroscopy that document radiation exp osure indices, or exposure time and number of fluorographic images (if radiation exposure indices are not available) Please consult full operative report of the attending physician for description of the procedure. TECHNICAL DOCUMENTATION: JOB ID: [id number] [employer]- All Rights Reserved
[2016-10-30] MEDS ORDERED: PIPERACILLIN SODIUM/TAZOBACTAM 3.375 GM in NORMAL SALINE 100 ML IV SCH (18:00)
--- NOTE | 2016-10-30 22:07 | EKG REPORT ---
SEVERITY:- OTHERWISE NORMAL ECG - SINUS TACHYCARDIA : Confirmed by: Cely Keen 30-Oct-2016 22:06:45
[2016-10-30] MEDS: PIPERACILLIN SODIUM/TAZOBACTAM 2.25 GM in NORMAL SALINE 50 ML IV SCH (23:36)
[2016-10-31 05:12] LABS: ABSOLUTE MONOCYTES (AUTO) 1.4 10^3/uL (0.1-1.4); ABSOLUTE NEUT (AUTO) 14.7 10^3/uL (1.7-8.2); BASOPHILS % (AUTO) 0.2 % (0-2); EOSINOPHILS % (AUTO) 0.2 % (0-6); HEMOGLOBIN 13.3 g/dL (13.5-17.0); HGB HCT DIFFERENCE 0.9; LYMPHOCYTES % (AUTO) 5.8 % (13-45); MEAN CORPUSCULAR HEMOGLOBIN 31.8 pg (27.0-33.4); MEAN CORPUSCULAR VOLUME 93 fl (80-97); MONOCYTES % (AUTO) 8.4 % (3-13); RED BLOOD COUNT 4.18 10^6/uL (4.35-5.55); RED CELL DISTRIBUTION WIDTH 13.8 % (11.5-14.0); SEGMENTED NEUTROPHILS % (AUTO) 85.4 % (42-78); WHITE BLOOD COUNT 17.3 10^3/uL (4.0-10.5)
[2016-10-31 05:27] LABS: ANION GAP 9 (5-19); BLOOD UREA NITROGEN 37 mg/dL (7-20); CALCIUM 8.8 mg/dL (8.4-10.2); CARBON DIOXIDE 23 mmol/L (22-30); CHLORIDE 108 mmol/L (98-107); CREATININE RESULT 2.14 mg/dL (0.52-1.25); GLUCOSE 128 mg/dL (75-110); SODIUM 140.2 mmol/L (137-145)
[2016-10-31 05:36] LABS: POTASSIUM 5.2 mmol/L (3.6-5.0)
[2016-10-31] MEDS: PIPERACILLIN SODIUM/TAZOBACTAM 2.25 GM in NORMAL SALINE 50 ML IV SCH ×3 (05:54→18:15)
--- NOTE | 2016-10-31 09:45 | PDOC PROGRESS REPORT ---
Subjective Progress Note for:: 10/31/16 Subjective:: Denies any complaints. Physical Exam Vital Signs: Temp Pulse Resp BP Pulse Ox 97.8 F 61 18 114/72 99 10/31/16 07:24 10/31/16 07:24 10/31/16 07:24 10/31/16 07:24 10/31/16 07:24 Intake & Output 10/30/16 10/31/16 11/01/16 06:59 06:59 06:59 Intake Total 4550 Output Total 550 Balance 4000 Weight 219.2 kg 99.8 kg General appearance: PRESENT: no acute distress Eye exam: PRESENT: conjunctiva pink. ABSENT: scleral icterus Mouth exam: PRESENT: moist, tongue midline Neck exam: ABSENT: JVD Respiratory exam: PRESENT: clear to auscultation flynn. ABSENT: rales, rhonchi, wheezes Cardiovascular exam: PRESENT: RRR. ABSENT: diastolic murmur, rubs, systolic murmur GI/Abdominal exam: PRESENT: normal bowel sounds, soft. ABSENT: distended, guarding, mass, organolmegaly, rebound, tenderness Extremities exam: ABSENT: calf tenderness, clubbing, pedal edema Neurological exam: PRESENT: alert, awake, oriented to person, oriented to place , oriented to time, oriented to situation, CN II-XII grossly intact. ABSENT: motor sensory deficit Psychiatric exam: PRESENT: appropriate affect Skin exam: PRESENT: dry, intact, warm. ABSENT: cyanosis, rash Results Laboratory Results: 10/31/16 04:05 10/31/16 04:05 10/31/16 10/31/16 04:05 04:05 WBC 17.3 H RBC 4.18 L Hgb 13.3 L Hct 39.0 MCV 93 MCH 31.8 MCHC 34.0 RDW 13.8 Plt Count 136 L Seg Neutrophils % 85.4 H Lymphocytes % 5.8 L Monocytes % 8.4 Eosinophils % 0.2 Basophils % 0.2 Absolute Neutrophils 14.7 H Absolute Lymphocytes 1.0 Absolute Monocytes 1.4 Absolute Eosinophils 0.0 Absolute Basophils 0.0 Sodium 140.2 Potassium 5.2 H Chloride 108 H Carbon Dioxide 23 Anion Gap 9 BUN 37 H Creatinine 2.14 H Est GFR ( Amer) 39 L Est GFR (Non-Af Amer) 32 L Glucose 128 H Calcium 8.8 Impressions: Retrograde Pyelogram 10/30/16 00:00 IMPRESSION: IMAGE(S) OBTAINED DURING PROCEDURE. KUB X-Ray 10/30/16 12:55 IMPRESSION: PROBABLE CALCULUS IN THE RIGHT KIDNEY, OBSCURED BY STOOL IN THE OVERLYING COLON. Assessment & Plan - Diagnosis (1) Acute renal failure Is this a current diagnosis for this admission?: Yes Plan: Patient has acute renal failure most likely secondary to dehydration. The patient's creatinine has improved. Will continue with the IV fluids. (2) Obstruction of right ureteropelvic junction (UPJ) due to stone Is this a current diagnosis for this admission?: Yes Plan: Patient had stent placement yesterday it was stone removal by urology. Their input is appreciated. (3) Pyelonephritis, acute Is this a current diagnosis for this admission?: Yes Plan: He has not had any fever since last night. Urine culture from his ER visit prior is growing out gram-positive cocci. We are waiting on the ID of this. We will continue with the vancomycin and Zosyn until the ID of this bacteria is known. (4) Hyperkalemia Is this a current diagnosis for this admission?: Yes Plan: We will continue with IV fluids and monitor. - Time Time Spent with patient: 25-34 minutes - Inpatient Certification Medical Necessity: Need Close Monitoring Due to Risk of Patient Decompensation, Need For IV Fluids, Need for IV Antibiotics
[2016-10-31] MEDS ORDERED: VANCOMYCIN HCL 1,500 MG in DEXTROSE 5%-WATER 250 ML IV SCH (10:00)
--- NOTE | 2016-10-31 12:14 | Operative Report ---
Operative Report DATE OF SURGERY: 10/30/16 PREOPERATIVE DIAGNOSIS: Ureteral obstruction, UPJ stone, pyelonephritis POSTOPERATIVE DIAGNOSIS: same OPERATION: 1. Cystoscopy. 2. Placement of right ureteral stent. 3. Culture of urine from right renal pelvis SURGEON: MITCH BOX II ANESTHESIA: GA INTRAOPERATIVE FINDINGS: right ureteral obstruction PROCEDURE: Date of note 10/30/2016 Preoperative diagnosis: Obstruction of the right kidney, ureteropelvic junction stone, probable sepsis from urinary tract infection Postoperative diagnosis: Same Procedure: Cystoscopy, placement of right ureteral stent, collection of urine from right kidney Surgeon: Kacy Anesthesia: General The patient was taken to the cystoscopy suite and placed into the supine position on the cystoscopy table. After adequate general anesthesia he was prepped and draped in the usual sterile fashion in the lithotomy position. Cystoscopy was carried out with the 22 Turkish panendoscope. The right ureteral orifice was visualized. The orifice was cannulated with a 5 Turkish open-ended ureteral catheter which was advanced under fluoroscopic guidance. The ureteral catheter was advanced into the renal pelvis. A hydronephrotic drip was obtained and a portion of this drainage was collected and sent for urine culture. Utilizing the exchange technique and a 0.035 Glidewire, a 4.8 Turkish 26 cm double-pigtail stent was placed and positioned under fluoroscopic guidance. The bladder was drained and the cystoscope was removed. The patient was returned to the PACU in satisfactory condition.
--- NOTE | 2016-10-31 12:18 | PDOC PROGRESS REPORT ---
Physical Exam Vital Signs: Temp Pulse Resp BP Pulse Ox 98.1 F 72 18 113/68 100 10/31/16 10:53 10/31/16 10:53 10/31/16 10:53 10/31/16 10:53 10/31/16 10:53 Results Laboratory Results: White count today 17,000, down from 20,000 yesterday. Impressions: Retrograde Pyelogram 10/30/16 00:00 IMPRESSION: IMAGE(S) OBTAINED DURING PROCEDURE. KUB X-Ray 10/30/16 12:55 IMPRESSION: PROBABLE CALCULUS IN THE RIGHT KIDNEY, OBSCURED BY STOOL IN THE OVERLYING COLON. Assessment & Plan - Diagnosis (1) Obstruction of right ureteropelvic junction (UPJ) due to stone Is this a current diagnosis for this admission?: Yes - Plan Summary Plan Summary: The patient feels somewhat better than when he presented to the emergency room yesterday. He is having a little bit of reflux up the stent when he urinates causing some mild flank discomfort. This is expected with a ureteral stent present. Other than that he is feeling fine and is being Until he improves somewhat with his white count [place] I encouraged him to drink more fluids and to contact his urologist when he got back home to schedule treatment in the future. He would need some time for the inflammatory process to improve and the infection to be treated adequately prior to any urologic procedure to treat his stone.
[2016-10-31] MEDS ORDERED: GABAPENTIN 300 MG CAPSULE PO SCH (14:00)
[2016-11-01] MEDS: PIPERACILLIN SODIUM/TAZOBACTAM 2.25 GM in NORMAL SALINE 50 ML IV SCH ×4 (00:45→17:24)
[2016-11-01 04:42] LABS: ABSOLUTE EOSINOPHILS # (AUTO) 0.4 10^3/uL (0.0-0.6); ABSOLUTE LYMPHOCYTES (AUTO) 1.9 10^3/uL (0.5-4.7); ABSOLUTE MONOCYTES (AUTO) 1.6 10^3/uL (0.1-1.4); ABSOLUTE NEUT (AUTO) 9.1 10^3/uL (1.7-8.2); BASOPHILS % (AUTO) 0.3 % (0-2); EOSINOPHILS % (AUTO) 2.9 % (0-6); HEMATOCRIT 36.3 % (37.9-51.0); HEMOGLOBIN 12.5 g/dL (13.5-17.0); HGB HCT DIFFERENCE 1.2; LYMPHOCYTES % (AUTO) 14.5 % (13-45); MEAN CORPUSCULAR HEMOGLOBIN 31.4 pg (27.0-33.4); MEAN CORPUSCULAR HGB CONC 34.3 g/dL (32.0-36.0); MEAN CORPUSCULAR VOLUME 92 fl (80-97); MONOCYTES % (AUTO) 12.1 % (3-13); RED BLOOD COUNT 3.97 10^6/uL (4.35-5.55); SEGMENTED NEUTROPHILS % (AUTO) 70.2 % (42-78); WHITE BLOOD COUNT 12.9 10^3/uL (4.0-10.5)
[2016-11-01 04:53] LABS: ANION GAP 8 (5-19); BLOOD UREA NITROGEN 27 mg/dL (7-20); CALCIUM 8.5 mg/dL (8.4-10.2); CARBON DIOXIDE 23 mmol/L (22-30); CHLORIDE 110 mmol/L (98-107); CREATININE RESULT 1.52 mg/dL (0.52-1.25); GLUCOSE 99 mg/dL (75-110); POTASSIUM 4.4 mmol/L (3.6-5.0); SODIUM 140.9 mmol/L (137-145)
[2016-11-01] MEDS ORDERED: OXYCODONE HCL IR 5 MG TABLET PO PRN (07:48)
[2016-11-01] MEDS ORDERED: LISINOPRIL 10 MG TABLET PO SCH (10:00)
[2016-11-01] MEDS ORDERED: (PENDING PHARMACY ID) (Lisinopril [Zestril] 20 MG) PO SCH (10:00)
[2016-11-01] MEDS: LANSOPRAZOLE 30 MG TAB.RAP.DR PO SCH (10:26)
[2016-11-01] MEDS: VANCOMYCIN HCL 1,000 MG in DEXTROSE 5%-WATER 250 ML IV SCH ×2 (10:26→21:14)
--- NOTE | 2016-11-01 11:12 | PDOC PROGRESS REPORT ---
Subjective Progress Note for:: 11/01/16 Subjective:: Denies any complaints. Physical Exam Vital Signs: Temp Pulse Resp BP Pulse Ox 98.4 F 113 H 22 H 126/87 H 98 11/01/16 07:55 11/01/16 09:03 11/01/16 09:03 11/01/16 07:55 11/01/16 09:03 Intake & Output 10/31/16 11/01/16 11/02/16 06:59 06:59 06:59 Intake Total 5807 Output Total 3725 Balance 2082 General appearance: PRESENT: no acute distress Eye exam: PRESENT: conjunctiva pink. ABSENT: scleral icterus Neck exam: ABSENT: JVD Respiratory exam: PRESENT: clear to auscultation flynn. ABSENT: rales, rhonchi, wheezes Cardiovascular exam: PRESENT: RRR. ABSENT: diastolic murmur, rubs, systolic murmur GI/Abdominal exam: PRESENT: normal bowel sounds, soft. ABSENT: distended, guarding, mass, organolmegaly, rebound, tenderness Extremities exam: ABSENT: calf tenderness, clubbing, pedal edema Neurological exam: PRESENT: alert, awake, oriented to person, oriented to place , oriented to time, oriented to situation, CN II-XII grossly intact. ABSENT: motor sensory deficit Psychiatric exam: PRESENT: appropriate affect Skin exam: PRESENT: dry, intact, warm. ABSENT: cyanosis, rash Results Laboratory Results: 11/01/16 04:03 11/01/16 04:03 11/01/16 11/01/16 04:03 04:03 WBC 12.9 H RBC 3.97 L Hgb 12.5 L Hct 36.3 L MCV 92 MCH 31.4 MCHC 34.3 RDW 14.0 Plt Count 148 L Seg Neutrophils % 70.2 Lymphocytes % 14.5 Monocytes % 12.1 Eosinophils % 2.9 Basophils % 0.3 Absolute Neutrophils 9.1 H Absolute Lymphocytes 1.9 Absolute Monocytes 1.6 H Absolute Eosinophils 0.4 Absolute Basophils 0.0 Sodium 140.9 Potassium 4.4 Chloride 110 H Carbon Dioxide 23 Anion Gap 8 BUN 27 H Creatinine 1.52 H Est GFR ( Amer) 58 L Est GFR (Non-Af Amer) 48 L Glucose 99 Calcium 8.5 Impressions: Retrograde Pyelogram 10/30/16 00:00 IMPRESSION: IMAGE(S) OBTAINED DURING PROCEDURE. KUB X-Ray 10/30/16 12:55 IMPRESSION: PROBABLE CALCULUS IN THE RIGHT KIDNEY, OBSCURED BY STOOL IN THE OVERLYING COLON. Assessment & Plan - Diagnosis (1) Acute renal failure Is this a current diagnosis for this admission?: Yes Plan: Patient has acute renal failure most likely secondary to dehydration. The patient's creatinine continues to improve. Will continue with the IV fluids. (2) Obstruction of right ureteropelvic junction (UPJ) due to stone Is this a current diagnosis for this admission?: Yes Plan: Patient had stent placement by urology. Their input is appreciated. (3) Pyelonephritis, acute Is this a current diagnosis for this admission?: Yes Plan: Patient has been afebrile. Urine culture from his ER visit prior is growing out gram-positive cocci. We are waiting on the ID of this. We will continue with the vancomycin and Zosyn until the ID of this bacteria is known. (4) Hyperkalemia Is this a current diagnosis for this admission?: Yes Plan: We will continue with IV fluids and monitor. - Time Time Spent with patient: 25-34 minutes - Inpatient Certification Medical Necessity: Need For IV Fluids, Need for IV Antibiotics
[2016-11-02] MEDS: PIPERACILLIN SODIUM/TAZOBACTAM 2.25 GM in NORMAL SALINE 50 ML IV SCH ×2 (00:13→05:38)
[2016-11-02 05:04] LABS: ABSOLUTE BASOPHILS # (AUTO) 0.1 10^3/uL (0.0-0.2); ABSOLUTE EOSINOPHILS # (AUTO) 0.6 10^3/uL (0.0-0.6); ABSOLUTE LYMPHOCYTES (AUTO) 1.6 10^3/uL (0.5-4.7); ABSOLUTE MONOCYTES (AUTO) 1.2 10^3/uL (0.1-1.4); BASOPHILS % (AUTO) 0.7 % (0-2); EOSINOPHILS % (AUTO) 6.5 % (0-6); HEMATOCRIT 36.8 % (37.9-51.0); HEMOGLOBIN 12.4 g/dL (13.5-17.0); HGB HCT DIFFERENCE 0.4; LYMPHOCYTES % (AUTO) 17.2 % (13-45); MEAN CORPUSCULAR HEMOGLOBIN 31.5 pg (27.0-33.4); MEAN CORPUSCULAR HGB CONC 33.8 g/dL (32.0-36.0); MEAN CORPUSCULAR VOLUME 93 fl (80-97); MONOCYTES % (AUTO) 12.4 % (3-13); RED BLOOD COUNT 3.95 10^6/uL (4.35-5.55); RED CELL DISTRIBUTION WIDTH 14.4 % (11.5-14.0); SEGMENTED NEUTROPHILS % (AUTO) 63.2 % (42-78); WHITE BLOOD COUNT 9.5 10^3/uL (4.0-10.5)
[2016-11-02 05:20] LABS: ANION GAP 7 (5-19); BLOOD UREA NITROGEN 25 mg/dL (7-20); CALCIUM 8.9 mg/dL (8.4-10.2); CARBON DIOXIDE 23 mmol/L (22-30); CHLORIDE 112 mmol/L (98-107); CREATININE RESULT 1.24 mg/dL (0.52-1.25); GLUCOSE 106 mg/dL (75-110); POTASSIUM 3.9 mmol/L (3.6-5.0); SODIUM 142.4 mmol/L (137-145)
[2016-11-02] MEDS: LANSOPRAZOLE 30 MG TAB.RAP.DR PO SCH (09:23)
[2016-11-02] MEDS: VANCOMYCIN HCL 1,000 MG in DEXTROSE 5%-WATER 250 ML IV SCH (09:23)
[2016-11-02 10:54] VITALS: BP 144/85
--- NOTE | 2016-11-02 11:23 | PDOC DISCHARGE SUMMARY ---
General - Admit/Disc Date/PCP Admission Date/Primary Care Provider: 10/31/16 08:37 Discharge Date: 11/02/16 - Discharge Diagnosis (1) Acute renal failure Is this a current diagnosis for this admission?: Yes Summary: Resolved. (2) Obstruction of right ureteropelvic junction (UPJ) due to stone Is this a current diagnosis for this admission?: Yes Summary: Patient had a right ureteral stent placed by Dr. Woodruff of urology. (3) Pyelonephritis, acute Is this a current diagnosis for this admission?: Yes Summary: Growing gram-positive cocci from blood and urine cultures. He will be sent home on Bactrim DS twice daily. We are waiting on the ID. Clinically he has improved. (4) Hyperkalemia Is this a current diagnosis for this admission?: Yes Summary: Resolved. - Additional Information Resuscitation Status: Full Code Discharge Diet: Regular Discharge Activity: Activity As Tolerated Home Medications: Esomeprazole Magnesium [Nexium] 40 mg PO DAILY 10/30/16 Pregabalin [Lyrica 100 mg Capsule] 100 mg PO DAILY 10/30/16 Tadalafil [Cialis] 5 mg PO ASDIR PRN 10/30/16 Oxycodone HCl [Oxy-Ir 5 mg Tablet] 5 mg PO Q6HP PRN #10 tablet 11/02/16 Sulfamethoxazole/Trimethoprim [Bactrim Ds Tablet] 1 each PO BID #30 tablet 11/02 History of Present Illness History of Present Illness: MYAH LOPEZ is a 56 year old male who has a previous history of kidney stones who presents with nausea, vomiting, fevers and chills and rigors. The patient was seen in the emergency room here at [facility] on October 28. He was diagnosed with a kidney stone and was given Dilaudid and Cipro. Patient went home and reports that later that evening he began to have fevers and chills up to as high as 103. Patient presents today with continued symptoms along with worsening pain. The patient is found to have a 14 mm stone is admitted for IV antibiotics and urological intervention. The patient also was noted to have acute renal failure. His creatinine 2 days ago was normal but is is up today. Patient has had decreased p.o. intake. He has had some hematuria. He complains of bilateral flank pain. It has been intermittent in nature. He also does complain of some right lower quadrant abdominal pain. Hospital Course Hospital Course: 56-year-old gentleman who presented with nausea, vomiting, nephrolithiasis and acute renal failure. Patient was treated with IV fluids and IV narcotics. Patient was evaluated by urology placed a right ureteral stent. Patient had a 10 mm stone. The patient's creatinine has returned to normal. He has tolerating his pain with just oral oxycodone. He does have positive cultures growing out gram-positive cocci. He has been on Zosyn however we will switch to Bactrim and treat him as an outpatient. He is established with a urology group in [facility]. He will follow-up with them next week. Physical Exam Vital Signs: Temp Pulse Resp BP Pulse Ox 98.8 F 59 L 18 144/85 H 96 11/02/16 11:10 11/02/16 11:10 11/02/16 11:10 11/02/16 08:42 11/02/16 11:10 Intake & Output 11/01/16 11/02/16 11/03/16 06:59 06:59 06:59 Intake Total 5807 6852 Output Total 3725 2325 Balance 2082 4527 Weight 99.5 kg General appearance: PRESENT: no acute distress Eye exam: PRESENT: conjunctiva pink. ABSENT: scleral icterus Mouth exam: PRESENT: moist, tongue midline Neck exam: ABSENT: JVD Respiratory exam: PRESENT: clear to auscultation flynn. ABSENT: rales, rhonchi, wheezes Cardiovascular exam: PRESENT: RRR. ABSENT: diastolic murmur, rubs, systolic murmur GI/Abdominal exam: PRESENT: normal bowel sounds, soft. ABSENT: distended, guarding, mass, organolmegaly, rebound, tenderness Extremities exam: ABSENT: calf tenderness, clubbing, pedal edema Neurological exam: PRESENT: alert, awake, oriented to person, oriented to place , oriented to time, oriented to situation, CN II-XII grossly intact. ABSENT: motor sensory deficit Psychiatric exam: PRESENT: appropriate affect Skin exam: PRESENT: dry, intact, warm. ABSENT: cyanosis, rash Results Laboratory Results: 11/02/16 03:56 11/02/16 03:56 11/02/16 11/02/16 03:56 03:56 WBC 9.5 RBC 3.95 L Hgb 12.4 L Hct 36.8 L MCV 93 MCH 31.5 MCHC 33.8 RDW 14.4 H Plt Count 153 Seg Neutrophils % 63.2 Lymphocytes % 17.2 Monocytes % 12.4 Eosinophils % 6.5 H Basophils % 0.7 Absolute Neutrophils 6.0 Absolute Lymphocytes 1.6 Absolute Monocytes 1.2 Absolute Eosinophils 0.6 Absolute Basophils 0.1 Sodium 142.4 Potassium 3.9 Chloride 112 H Carbon Dioxide 23 Anion Gap 7 BUN 25 H Creatinine 1.24 Est GFR ( Amer) > 60 Est GFR (Non-Af Amer) > 60 Glucose 106 Calcium 8.9 Impressions: Retrograde Pyelogram 10/30/16 00:00 IMPRESSION: IMAGE(S) OBTAINED DURING PROCEDURE. KUB X-Ray 10/30/16 12:55 IMPRESSION: PROBABLE CALCULUS IN THE RIGHT KIDNEY, OBSCURED BY STOOL IN THE OVERLYING COLON. Qualifiers PATEINT BEING DISCHARGED WITH ANY OF THE FOLLOWING DIAGNOSIS?: No Plan Discharge Plan: Patient is discharged home. He will follow-up with his urologist in 1 week. Time Spent: Greater than 30 Minutes
== END 2016-11-02 12:00 | disposition home or self-care (01) | DRG 683 ==
LOC: ER 12:36 → EH 14:43 → EDLOC 14:43 → UNDOADMIN 14:43 → EH 15:12 → 3W 17:49 → EH 17:49 → 3W 10-31 08:37
PROVIDERS: ADMIT Internal Medicine; ATTEND Internal Medicine
PROC: BT1DZZZ Fluoroscopy of Right Kidney, Ureter and Bladder (ICD-10-PCS; 2016-10-30)
PROC: 0T768DZ Dilation of Right Ureter with Intraluminal Device, Via Natural or Artificial Opening Endoscopic (ICD-10-PCS; principal; 2016-10-30 15:30)
DX: N17.9 Acute kidney failure, unspecified (principal); N20.1 Calculus of ureter; N10 Acute pyelonephritis; K21.9 Gastro-esophageal reflux disease without esophagitis; R31.9 Hematuria, unspecified; E86.0 Dehydration; E87.5 Hyperkalemia; Z98.84 Bariatric surgery status
CPT/HCPCS: 36415; 74000; 74420; 80048; 80053; 81001; 82803; 83605; 85025; 85610; 87040; 87077; 87086; 87088; 87186; 918; 93005; 93010; 96365; 96366; 99285; C1758; J0131; J0330; J0744; J1100; J1170; J2250; J2370; J2405; J2543; J2704; J3370; J3490; J7030; J7060